=== PATIENT | female | born 1990 | race Caucasian/White ===

== ENCOUNTER 2017-03-21 11:14 | Observation (INO) | payer OTHER ==
--- NOTE | 2017-03-21 11:55 | ERPHSYRPT ---
- History of Present Illness Time Seen by Provider: 03/21/17 11:50 Historian: patient Exam Limitations: no limitations Patient Subjective Stated Complaint: rlq abd pain since last night Triage Nursing Assessment: ambulated to room per self holding right lower abd. skin w/d, color normal, resp easy. abd soft, tender rlq. bowel sounds normal. Physician History: The patient is a 26-year-old female brought in by her sister complaining of right lower quadrant abdominal pain that began yesterday afternoon. It has become increasingly more severe. Last night she had sweats and chills. She denies nausea vomiting or diarrhea. Her last menstrual period was about 3 weeks ago. She did not eat any solid food today but she did drink a significant amount of water this morning. Her past medical history is unremarkable except for a . Timing/Duration: yesterday Activities at Onset: none Quality: sharpness Abdominal Pain Onset Location: RLQ Pain Radiation: no radiation Severity of Pain-Max: severe Severity of Pain-Current: severe Modifying Factors: Improves With: movement, position, walking Associated Symptoms: diaphoresis, fever/chills Previous symptoms: no prior history Allergies/Adverse Reactions: No Known Drug Allergies Allergy (Verified 03/21/17 11:31) Hx Tetanus, Diphtheria Vaccination/Date Given: No Hx Influenza Vaccination/Date Given: Yes (2015) Hx Pneumococcal Vaccination/Date Given: No - Review of Systems Constitutional: Chills Eyes: No Symptoms Ears, Nose, & Throat: No Symptoms Respiratory: No Cough, No Dyspnea Cardiac: No Chest Pain, No Edema, No Syncope Abdominal/Gastrointestinal: Abdominal Pain Genitourinary Symptoms: No Dysuria Musculoskeletal: No Back Pain, No Neck Pain Skin: No Rash Neurological: No Dizziness, No Focal Weakness, No Sensory Changes Psychological: No Symptoms Endocrine: No Symptoms Hematologic/Lymphatic: No Symptoms Immunological/Allergic: No Symptoms All Other Systems: Reviewed and Negative - Past Medical History Pertinent Past Medical History: No - Past Surgical History Past Surgical History: Yes Female Surgical History: Section Other Surgical History: S/P 10 DAYS AGO - Social History Smoking Status: Never smoker Exposure to second hand smoke: No Drug Use: none Patient Lives Alone: No - Female History Hx Last Menstrual Period: 02/22/17 Hx Now: No (DELIVERED 1 WK AGO) - Nursing Vital Signs Nursing Vital Signs: Initial Vital Signs Temperature 98.3 F Temperature Source Oral Pulse Rate 88 Respiratory Rate 16 Blood Pressure [] 109/56 Pain Intensity 3 - Physical Exam General Appearance: moderate distress Eye Exam: PERRL/EOMI, eyes nml inspection Ears, Nose, Throat Exam: normal ENT inspection, pharynx normal, moist mucous membranes Neck Exam: normal inspection, non-tender, supple, full range of motion Respiratory Exam: normal breath sounds, lungs clear, No respiratory distress Cardiovascular Exam: regular rate/rhythm, normal heart sounds Gastrointestinal/Abdomen Exam: tenderness (RLQ), guarding, rebound Pelvic Exam: not done Rectal Exam: not done Back Exam: normal inspection, normal range of motion, No CVA tenderness, No vertebral tenderness Extremity Exam: normal inspection, normal range of motion, pelvis stable Neurologic Exam: alert, oriented x 3, cooperative, normal mood/affect, nml cerebellar function, sensation nml, No motor deficits Skin Exam: normal color, warm, dry SpO2 Interpretation: normal SpO2: 99 Oxygen Delivery: Room Air - CT Exams Abdomen/Pelvis CT Interpretation: Discussed w/radiologist, Tele-radiologist Report, appendicitis (moderate appendicitis per Dr Vasquez) Ordered Tests: Active Orders 24 hr Category Date Time Status IV Insertion STAT Care 03/21/17 11:59 Active ABDOMEN AND PELVIS W/0 CONTRAS [CT] Stat Exams 03/21/17 11:59 Taken CBC W DIFF Stat Lab 03/21/17 12:06 Completed CMP Stat Lab 03/21/17 12:06 Completed CULTURE,URINE Stat Lab 03/21/17 11:59 Received HCG QUALITATIVE,SERUM Stat Lab 03/21/17 12:06 Completed Lactic Acid Stat Lab 03/21/17 12:15 Completed UA W/ MICROSCOPIC Stat Lab 03/21/17 11:59 Completed Medication Summary Generic Name Dose Route Start Last Admin Trade Name Freq PRN Reason Stop Dose Admin Famotidine 20 mg 03/21/17 14:45 Pepcid 20 Mg Vial IV 03/21/17 14:46 1HRPRIOR JEFF Lactated Ringer's 1,000 mls @ 50 mls/hr 03/21/17 14:45 Lactated Ringers IV 03/22/17 10:44 .Q20H JEFF Discontinued Medications Generic Name Dose Route Start Last Admin Trade Name Freq PRN Reason Stop Dose Admin Hydromorphone HCl 1 mg 03/21/17 13:32 05/28/17 13:43 Hydromorphone 1 Mg/Ml Ampule IV 03/21/17 13:33 1 mg STAT ONE Administration Hydromorphone HCl Confirm 03/21/17 13:41 Hydromorphone 1 Mg/Ml Ampule Administered 03/21/17 13:42 Dose 1 mg .ROUTE .STK-MED ONE Sodium Chloride 1,000 mls @ 999 mls/hr 03/21/17 11:59 03/21/17 12:06 Sodium Chloride 0.9% 1000 Ml IV 03/21/17 12:59 999 mls/hr .Q1H1M STA Administration Sodium Chloride Confirm 03/21/17 12:05 Sodium Chloride 0.9% 1000 Ml Administered 03/21/17 12:06 Dose 1,000 mls @ ud .ROUTE .STK-MED ONE Piperacillin Sod/Tazobactam Sod 3.375 gm in 100 mls @ 200 mls/hr 03/21/17 13: 31 03/21/17 13:43 Zosyn 3.375gm/100 Ml D5w IV 03/21/17 14:00 200 mls/hr STAT STA Administration Piperacillin Sod/Tazobactam Sod Confirm 03/21/17 13:42 Zosyn 3.375gm/100 Ml D5w Administered 03/21/17 13:43 Dose 3.375 gm in 100 mls @ ud IV .STK-MED ONE Ketorolac Tromethamine 30 mg 03/21/17 11:59 03/21/17 12:06 Toradol 30 Mg Injection IV 03/21/17 12:00 30 mg STAT ONE Administration Ketorolac Tromethamine Confirm 03/21/17 12:05 Toradol 30 Mg Injection Administered 03/21/17 12:06 Dose 30 mg .ROUTE .STK-MED ONE Promethazine HCl 25 mg 03/21/17 13:32 03/21/17 13:43 Phenergan 25 Mg Inj IV 03/21/17 13:33 25 mg STAT ONE Administration Promethazine HCl Confirm 03/21/17 13:41 Phenergan 25 Mg Inj Administered 03/21/17 13:42 Dose 25 mg .ROUTE .STK-MED ONE Lab/Rad Data: Laboratory Result Diagrams 03/21/17 12:06 03/21/17 12:06 Laboratory Results 03/21/17 03/21/17 03/21/17 Range/Units 12:15 12:06 12:06 WBC (4.0-10.5) K/mm3 RBC (4.1-5.4) M/mm3 Hgb (12.0-16.0) gm/dl Hct (35-47) % MCV (78-100) fl MCH (26-32) pg MCHC (32-36) g/dl RDW (11.5-14.0) % Plt Count (150-450) K/mm3 MPV (6-9.5) fl Gran % (36.0-66.0) % Lymphocytes % (24.0-44.0) % Monocytes % (0.0-12.0) % Eosinophils % (0.00-5.0) % Basophils % (0.0-0.4) % Basophils # (0-0.4) Sodium 140 (136-145) mEq/L Potassium 3.4 L (3.5-5.1) mEq/L Chloride 103 (98-107) mEq/L Carbon Dioxide 24.2 (21-32) mEq/L Anion Gap 15.9 H (5-15) MEQ/L BUN 11 (9-20) mg/dL Creatinine 0.79 (0.55-1.30) mg/dl Estimated GFR > 60 ML/MIN Glucose 111 H (70-110) MG/DL Lactic Acid 1.4 (0.4-2.0) Calcium 9.2 (8.5-10.1) mg/dL Total Bilirubin 1.40 H (0.2-1.0) mg/dL AST 20 (15-37) U/L ALT 35 (12-78) U/L Alkaline Phosphatase 55 (46-116) U/L Serum Total Protein 7.4 (6.4-8.2) gm/dL Albumin 4.2 (3.4-5.0) g/dL Serum , Qual NEGATIVE (Negative) Ur Collection Type Urine Color (YELLOW) Urine Appearance (CLEAR) Urine pH (5-6) Ur Specific [place] (1.005-1.025) Urine Protein (Negative) Urine Glucose (UA) (NEGATIVE) mg/dL Urine Ketones (NEGATIVE) Urine Nitrite (NEGATIVE) Urine Bilirubin (NEGATIVE) Urine Urobilinogen (0-1) mg/dL Urine WBC (Auto) (NEGATIVE) Urine RBC (Auto) (0-5) López/ul Urine Microscopic RBC (0-2) /HPF Urine Microscopic WBC (0-5) /HPF Ur Epithelial Cells (FEW) /HPF Amorphous Crystals (NEGATIVE) /HPF Urine Bacteria (NEGATIVE) /HPF Specimen Received 03/21/17 03/21/17 Range/Units 12:06 11:59 WBC 15.3 H (4.0-10.5) K/mm3 RBC 4.44 (4.1-5.4) M/mm3 Hgb 13.9 (12.0-16.0) gm/dl Hct 41.1 (35-47) % MCV 92.6 (78-100) fl MCH 31.3 (26-32) pg MCHC 33.8 (32-36) g/dl RDW 12.6 (11.5-14.0) % Plt Count 271 (150-450) K/mm3 MPV 9.9 H (6-9.5) fl Gran % 84.3 H (36.0-66.0) % Lymphocytes % 8.0 L (24.0-44.0) % Monocytes % 7.5 (0.0-12.0) % Eosinophils % 0.1 (0.00-5.0) % Basophils % 0.1 (0.0-0.4) % Basophils # 0.01 (0-0.4) Sodium (136-145) mEq/L Potassium (3.5-5.1) mEq/L Chloride (98-107) mEq/L Carbon Dioxide (21-32) mEq/L Anion Gap (5-15) MEQ/L BUN (9-20) mg/dL Creatinine (0.55-1.30) mg/dl Estimated GFR ML/MIN Glucose (70-110) MG/DL Lactic Acid (0.4-2.0) Calcium (8.5-10.1) mg/dL Total Bilirubin (0.2-1.0) mg/dL AST (15-37) U/L ALT (12-78) U/L Alkaline Phosphatase (46-116) U/L Serum Total Protein (6.4-8.2) gm/dL Albumin (3.4-5.0) g/dL Serum , Qual (Negative) Ur Collection Type CLEAN CATCH Urine Color ROMAN (YELLOW) Urine Appearance VERY CLOUDY (CLEAR) Urine pH 6.0 (5-6) Ur Specific [place] >=1.030 (1.005-1.025) Urine Protein 30 (Negative) Urine Glucose (UA) NEGATIVE (NEGATIVE) mg/dL Urine Ketones TRACE (NEGATIVE) Urine Nitrite NEGATIVE (NEGATIVE) Urine Bilirubin NEGATIVE (NEGATIVE) Urine Urobilinogen 1 (0-1) mg/dL Urine WBC (Auto) NEGATIVE (NEGATIVE) Urine RBC (Auto) MODERATE (0-5) López/ul Urine Microscopic RBC 5-10 (0-2) /HPF Urine Microscopic WBC 0-2 (0-5) /HPF Ur Epithelial Cells FEW (FEW) /HPF Amorphous Crystals MANY (NEGATIVE) /HPF Urine Bacteria PACKED (NEGATIVE) /HPF Specimen Received [id number] - Progress Progress: improved Discussed with Dr.: Joni Gunter (To [facility] to perform surgery.) Will see patient in: hospital (observation) Counseled pt/family regarding: lab results, diagnosis, rad results - Departure Time of Disposition: 13:31 Departure Disposition: Observation (per Dr Gunter for Dr Kaylin Rosado) Clinical Impression: Appendicitis Condition: Stable Critical Care Time: No Referrals: CHELE ROMERO MD [Primary Care Provider] -
[2017-03-21] MEDS ORDERED: TORAdol 30 mg Injection IV ONE ×2 (11:59→12:24)
[2017-03-21] MEDS ORDERED: Sodium Chloride 0.9% 1000 ML 1,000 ML IV STA (11:59)
[2017-03-21] MEDS ORDERED: Sodium Chloride 0.9% 1000 ML 1,000 ML ONE (12:05)
[2017-03-21] MEDS ORDERED: TORAdol 30 mg Injection ONE (12:05)
[2017-03-21 12:08] LABS: BASOPHIL % 0.1 % (0.0-0.4); Eosinophil % 0.1 % (0.00-5.0); Granulocytes % 84.3 % (36.0-66.0); Mean Cell Volume 92.6 fl (78-100); Mean Corpuscular Hemoglobin 31.3 pg (26-32); Mean Platelet Volume 9.9 fl (6-9.5); Monocytes % 7.5 % (0.0-12.0); Platelet Count 271 K/mm3 (150-450); Red Blood Count 4.44 M/mm3 (4.1-5.4); Red Cell Distribution Width 12.6 % (11.5-14.0); White Blood Count 15.3 K/mm3 (4.0-10.5)
[2017-03-21 12:19] LABS: Collection Type CLEAN CATCH
[2017-03-21 12:20] LABS: COMPLETE URINE MICROSCOPIC? YES
[2017-03-21 12:24] LABS: ADD URINE CULTURE? YES (NO); Bacteria PACKED /HPF (NEGATIVE); Epithelial Cells FEW /HPF (FEW); WBC 0-2 /HPF (0-5)
[2017-03-21] MEDS ORDERED: Decadron 4 MG INJ IV ONE (12:24)
[2017-03-21] MEDS ORDERED: Quelicin Fliptop 200 MG/10 ML IV ONE (12:24)
[2017-03-21] MEDS ORDERED: Zofran 4 MG/2 ML VIAL IV ONE (12:24)
[2017-03-21] MEDS ORDERED: Versed 2 MG/2 ML Injection IV ONE (12:24)
[2017-03-21] MEDS ORDERED: DIPRIVAN 200 MG/20 ML IV ONE (12:24)
[2017-03-21] MEDS ORDERED: SUBLIMAZE 250 MCG/5 ML IV ONE (12:24)
[2017-03-21] MEDS ORDERED: Zemuron 100 MG/10 ML IV ONE (12:24)
[2017-03-21] MEDS ORDERED: BRIDION 200MG/2ML IV ONE (12:24)
[2017-03-21 12:35] LABS: ALBUMIN 4.2 g/dL (3.4-5.0); ALKALINE PHOSPHATASE 55 U/L (46-116); ANION GAP 15.9 MEQ/L (5-15); BLOOD UREA NITROGEN 11 mg/dL (9-20); CHLORIDE 103 mEq/L (98-107); Carbon Dioxide 24.2 mEq/L (21-32); Glucose 111 MG/DL (70-110); Potassium 3.4 mEq/L (3.5-5.1); SGOT/AST 20 U/L (15-37); SGPT/ALT 35 U/L (12-78); SODIUM 140 mEq/L (136-145); Total Protein 7.4 gm/dL (6.4-8.2)
[2017-03-21] MEDS ORDERED: Zosyn 3.375GM/100 Ml D5W 3.375 GM/100 ML IVPB IV STA (13:31)
[2017-03-21] MEDS ORDERED: Phenergan 25 MG INJ IV ONE (13:32)
[2017-03-21] MEDS ORDERED: Hydromorphone 1 mg/ml Ampule IV ONE (13:32)
[2017-03-21] MEDS ORDERED: Hydromorphone 1 mg/ml Ampule ONE (13:41)
[2017-03-21] MEDS ORDERED: Phenergan 25 MG INJ ONE (13:41)
[2017-03-21] MEDS ORDERED: Zosyn 3.375GM/100 Ml D5W 3.375 GM/100 ML IVPB IV ONE (13:42)
[2017-03-21] MEDS ORDERED: Lactated Ringers 1,000 ML IV ONE (14:36)
[2017-03-21] MEDS ORDERED: Pepcid 20 MG VIAL IV ONE (14:36)
[2017-03-21] MEDS ORDERED: Lactated Ringers 1,000 ML IV SCH (14:45)
[2017-03-21] MEDS ORDERED: Pepcid 20 MG VIAL IV SCH (14:45)
[2017-03-21] MEDS ORDERED: MEFOXIN 2 GM PREMIX** 2 GM/50 ML ML IV SCH (15:00)
[2017-03-21] MEDS ORDERED: MEFOXIN 1 Gm/ D5W 50 Ml** 1 G/50 ML ML IV ONE (20:32)
[2017-03-21] MEDS ORDERED: Dextrose 5%-Lr IV Solution 1000 ML 1,000 ML IV SCH (21:00)
[2017-03-21] MEDS ORDERED: NORCO 5/325 MG PO PRN ×2 (21:42→21:47)
[2017-03-21] MEDS ORDERED: Zofran 4 MG/2 ML VIAL IV PRN (21:48)
--- NOTE | 2017-03-21 22:32 | XRAY ---
Indication: Right lower quadrant pain. Multiple contiguous axial images obtained through the abdomen and pelvis without contrast as ordered. Comparison: None Minimal bibasilar dependent atelectasis. Heart is not enlarged. Noncontrasted stomach and bowel loops appear nonobstructed. The appendix is prominent up to 11 mm in diameter with periappendiceal stranding favoring acute appendicitis. No free fluid/air. There is a uterine IUD. Remaining liver, gallbladder, pancreas, spleen, adrenal glands, kidneys, ureters, bladder, and aorta appear unremarkable for noncontrasted exam. Osseous structures intact. Impression: CT features favoring acute appendicitis. No complications. Comment: Preliminary interpretation was made by [facility]. No discrepancy. CTDI 20.40
[2017-03-21] MEDS: MORPHINE SULFATE 2 MG INJ IV PRN (23:24)
[2017-03-22] MEDS: MEFOXIN 1 Gm/ D5W 50 Ml** 1 G/50 ML ML IV SCH ×2 (00:01→07:52)
[2017-03-22] MEDS: MORPHINE SULFATE 2 MG INJ IV PRN (04:33)
--- NOTE | 2017-03-22 11:07 | PCM.SSS ---
History of Present Illness - Chief Complaint Chief Complaint: Appendicitis History of Present Illness: is a 26 year old female admitted through ER yesterday with 1d of 7-8/ 10 RLQ pain and decreased appetite. Found to have appendicitis. Appendectomy done yesterday and per pt they found some pus in the abdomen. Today she is having 3-4/10 soreness. Has tolerated po. - Review of Systems Constitutional: Chills Abdominal/Gastrointestinal: Abdominal Pain, Appetite Changes All Other Systems: Reviewed and Negative Medications & Allergies Home Medications: Home Medication List No Reportable Medications [No Reported Medications] 03/21/17 [History Confirmed 03/21/17] Allergies/Adverse Reactions: Allergies Allergy/AdvReac Type Severity Reaction Status Date / Time No Known Drug Allergies Allergy Verified 03/21/17 11:31 - Past Medical History Past Medical History: No Neurological History: No Pertinent History ENT History: No Pertinent History Cardiac History: No Pertinent History Respiratory History: No Pertinent History Endocrine Medical History: No Pertinent History Musculoskelatal History: No Pertinent History GI Medical History: No Pertinent History History: No Pertinent History Pyscho-Social History: No Pertinent History Reproductive Disorders: No Pertinent History - Female History Hx Last Menstrual Period: 02/22/17 Are you now?: No - Past Surgical History Past Surgical History: Yes Neuro Surgical History: No Pertinent History Cardiac History: No Pertinent History Respiratory Surgery: No Pertinent History GI Surgical History: No Pertinent History Genitourinary Surgical Hx: No Pertinent History Female Surgical History: No Pertinent History, Section Other Surgical History: S/P 10 DAYS AGO - Social History Smoking Status: Never smoker Exposure to second hand smoke: No Alcohol: Occasionally Drug Use: none - Physical Exam Vital Signs: Vital Signs - 24 hr Temp Pulse Resp BP Pulse Ox 03/22/17 08:00 98.3 F 82 18 137/89 99 03/22/17 04:00 98.4 F 84 20 110/68 93 L 03/21/17 23:30 97.7 F 78 16 122/81 95 03/21/17 20:51 98.2 F 89 24 122/67 96 03/21/17 18:33 99.6 F 69 18 118/77 94 L 03/21/17 14:41 99 03/21/17 14:00 88 16 109/56 98 03/21/17 12:30 88 16 104/58 100 05/28/17 11:22 98.3 F 111 H 16 130/77 99 General Appearance: no apparent distress Neurologic Exam: alert, oriented x 3, cooperative Eye Exam: eyes nml inspection Neck Exam: normal inspection, non-tender, No lymphadenopathy Respiratory Exam: normal breath sounds, lungs clear, No crackles/rales, No rhonchi, No wheezing Cardiovascular Exam: regular rate/rhythm, normal heart sounds, No murmur Gastrointestinal/Abdomen Exam: soft, normal bowel sounds, other (bandages in place, clean and dry), No tenderness (to light palpation), No distention, No guarding Extremity Exam: No pedal edema, No swelling Skin Exam: normal color, warm, dry Assessment/Plan (1) Appendicitis Current Visit: Yes Status: Acute Assessment & Plan: Pt admitted with appendicitis; surgery done yesterday at 3 p.m. Has been on cefoxetin q8h. Tolerating po. When cleared by surgery ok to d/c home. Code(s): K37 - UNSPECIFIED APPENDICITIS Hospital Summary - Hospital Course Hospital Course: Pt admitted through ER [facility] 1d of abd pain, found to have appendicitis. Surgery performed that afternoon. Pt on cefoxitin q8h postoperatively. Tolerating po. When cleared by surgery can d/c home. - Vitals & Intake/Output Vital Signs: Vital Signs Temperature 98.3 F 03/22/17 08:00 Pulse Rate 82 03/22/17 08:00 Respiratory Rate 18 03/22/17 08:00 Blood Pressure 137/89 03/22/17 08:00 O2 Sat by Pulse Oximetry 99 03/22/17 08:00 Intake & Output: Intake & Output 03/19/17 03/20/17 03/21/17 03/22/17 11:59 11:59 11:59 11:59 Intake Total 2032 Output Total 1900 Balance 132 Weight 87.407 kg - Lab Result Diagrams: 03/21/17 12:06 03/21/17 12:06 - Discharge Disposition: Home, Self-Care Condition: Stable Prescriptions: No Action No Reportable Medications [No Reported Medications] Follow up with: CHELE ROMERO MD [Primary Care Provider] -
[2017-03-22 12:40] VITALS: BP 139/83; PULSE 77; O2SAT 96
--- NOTE | 2017-03-23 08:08 | OP ---
SURGERY DATE/TIME: 03/21/2017 1522 PREOPERATIVE DIAGNOSIS: Acute appendicitis. POSTOPERATIVE DIAGNOSIS: Acute appendicitis with focal perforation and pelvic fluid. PROCEDURE: Laparoscopic appendectomy. SURGEON: To Rosado M.D. ANESTHESIA: General. COMPLICATIONS: None. CONDITION: Stable. INDICATION: A patient with acute appendicitis immediately taken from the emergency room to the operating room. DESCRIPTION OF PROCEDURE: Veress needle inserted. Opening pressure 1, Insufflating pressure 14. The patient had one section, one . Her uterosacral is fairly loose. Her uterus is fairly loose but the pelvis is otherwise normal and there was 2 ounces of purulence, one behind the uterus and one in front of the uterus which was suctioned and irrigated. Attention turned to the appendix. A third of the appendix was setting out in the abdomen. Omentum was wrapped on the tip. The omentum was pieced off and then the rest of the appendix was retrocecal. The cecum mobilized mildly and the base was able to be seen. Two bites of the mesoappendix made the base of the appendix accessible and then the base of the appendix was taken with 2.5 vascular cartridge immediately on the base totally getting rid of any appendiceal tissue. The staple line was excellent. Appendix placed in condom bag and removed. The right gutter pelvis was irrigated and resuctioned. It was dry. There was nothing to place a drain in. Although there certainly had been some purulence upon entry. Hole closure device the 12 port at the umbilicus, two - 5's were satisfactory. Skin closed with 4-0 Vicryl and Steri-Strips. Findings discussed with the in the waiting. Room.
== END 2017-03-22 12:25 | disposition home or self-care (01) ==
LOC: ED 11:14 → MED SURG 17:15
PROVIDERS: ADMIT Family Medicine; ATTEND Family Medicine
PROC: 0DTJ4ZZ Resection of Appendix, Percutaneous Endoscopic Approach (ICD-10-PCS; principal; 2017-03-21)
DX: K35.2 Acute appendicitis with generalized peritonitis (principal)
CPT/HCPCS: 00840; 36000; 36415; 74176; 80053; 81000; 83605; 84703; 85025; 87086; 96360; 96361; 96365; 96374; 96375; 99285; G0378; J0330; J0694; J1100; J1170; J1885; J2250; J2270; J2405; J2543; J2550; J2704; J3010; A9270-GY